=== PATIENT | female | born 1945 | race Caucasian/White ===

== ENCOUNTER 2024-11-15 07:23 | Day surgery (SDC) | payer MEDICARE, SELFPAY ==
--- OUTSIDE RECORDS SUMMARY | 2024-09-22 10:27 | XMS_ITS | Data Portability ---
Author Organization [place] [facility], Allergy Address [address] [facility] [address] [place] [address] Care Team Providers Care Manager Of Radiology Name Role Phone MARYANA GUNTER Primary Care Provider [phone] Assessment No assessment recorded. Plan of Treatment Reminders Order Date Submit Date Provider Last Modified By Organization Details Last Modified Time Details Appointments Establish ed 15 2024 10:30A M LIZY PERLA PA-C Not available Not available Not available Lab None recorded. Referral None recorded. Procedures None recorded. Surgeries None recorded. Imaging None recorded. Medication Orders None recorded. Patient TargetsNo targets recorded. Patient InstructionsNo instructions recorded. Reason for Referral None Reported. Problems Name Problem SNOMED Code Status Onset Date Resolution Date Notes Provider Name and Address Organization Details Recorded Time Benign paroxysmal positional vertigo 466534171 Active 2024 CONSTANTINE DUNCAN MD [address] [place] [address], [place], [address], [place] [facility] 5 09:56:39 Abnormal auditory perception 64852301 Active 2024 CONSTANTINE DUNCAN MD [address] [address], [place], [address], [place] [facility] 5 09:56:52 Abnormal auditory perception 64354407 Active 2024 CONSTANTINE DUNCAN MD [address] [place] [address], [place], [address], [place] [facility] 5 09:56:58 Referred otalgia of left ear 4097352285412 107 Active 2024 CONSTANTINE DUNCAN MD [address] [place] [address] [place], [address] - [facility] 5 09:57:49 Problem Notes None recorded. Medical Equipment None Reported. Allergies Allergen ID Allergen Name Allergen Category Reaction Reaction Severity Criticality Documentation Date Start Date Code Code System Note Provider Name and Address Organization Details Recorded Time 492577 Substance with sulfonami de structure and antibacte rial mechanism of action (substanc e) medicatio n Not available Not available Not available 07/06/2024 73311 8003 SNOMED Rachel rabago [place] - [facility] 5 09:11:32 205478 cow milk allergeni c extract food,medi cation Not available Not available Not available 07/06/2024 77960 5 RxNorm Rachel rabago [place] - [facility] 5 09:42:47 645674 POLLEN EXTRACTS environme nt,medica tion Not available Not available Not available 07/06/2024 62837 6 RxNorm Rachel rabago [place] [facility] 5 09:42:56 Medications Name Sig Start Date Stop Date Status Note LastModified by Organization Details LastModified Time amitriptyli ne 10 mg tablet TAKE 1 TABLET BY MOUTH EVERYDAY AT BEDTIME active Not Available Not Available No t Available meclizine 25 mg tablet TAKE 1 TABLET BY MOUTH 3 TIMES A DAY FOR 7 DAYS NEEDED FOR DIZZINESS 07/06 completed Not Available Not Available Not Available ergocalcife rol (vitamin D2) 1,250 mcg (50,000 unit) capsule TAKE 1 CAPSULE BY MOUTH EVERY WEEK active Not Available Not Available No t Available estradiol 0.01% (0.1 mg/gram) vaginal cream INSERT 1 GRAM VAGINALLY TWICE A WEEK AT BEDTIME active Not Available Not Available No t Available Vitals Date Recorded Body height Body weight Provider Name and Address Organization Details Last Updated DateTime 07/06/2024 160.02 cm 90968.78 g Rachel Castillo [facility] 07/06/2024 09:42:24 Social History None recorded. Functional Status None recorded. Mental Status None recorded. Family History Nothing Reported. Medical History Condition Response Depression Y Arthritis Y Anxiety Y Gynecological HistoryNo gynecological history recorded. Obstetrics History GPAL:G 0 P 0 0 0 0 Past Encounters Encounter ID Performer Location Encounter Start Date Encounter Closed Date Diagnosis/Indication Diagnosis SNOMED-CT Code Diagnosis ICD10 Code Diagnosis Note [id number] CONSTANTINE DUNCAN MD [facility] [address] [address] 07/06/2024 08:48:36 07/06/2024 10:09:43 Benign paroxysmal positional vertigo 484454488 H81.11 Patient with episodic positional ly induced vertigo. Irving-Hallpi ke was positive for vertigo and rotary nystagmus with the head to the left. We discussed that the patient s pattern of symptoms and physical exam findings are most consistent with benign paroxysmal positional vertigo (BPPV). The pathophysi ology of BPPV was discussed in detail. Patient was provided with a referral to [facility] for Zhou maneuvers and vestibular therapy. We discussed the fact that treatment of BPPV can require anywhere from 1 to 6 treatments for successful results, and has approximat erin 95% success rate in eliminatin g symptoms. BPPV can recur and if the classic positional ly induced symptoms do recur, patient can call for further referrals. Abnormal a uditory perception 27418390 H93.292 We discussed that the crackling sensation in the left ear is arising from her jaw joint as well. This can be addressed with her dentist if the above-ment ioned treatment is not successful . Referred o talgia of left ear [id number] 535303 H92.02 M26.622 M79.11 The patient complains of intermitte nt left-sided periauricu lar pressure sensation. Physical exam reveals no identifiab le source of these symptoms involving the auricle, external auditory canal, or tympanic membrane. Audiometri c testing and tympanomet ry are similarly unrevealin g. Furthermor e, examinatio n was positive for crepitus and tenderness of the left jaw joint and pamela-TMJ musculatur e. The patient's periauricu lar pressure sensation is most likely consistent with intermitte nt inflammati on of the jaw joint or spasm of the surroundin g musculatur e. I recommende d the patient use light massage, warm compresses and anti-infla mmatories for symptomati c management . Stressed chewing evenly on both sides of the mouth to keep from overworkin g the jaw joint. Use soft food diet as needed. Jaw Joint Program informatio n sheet was shared. If this treatment plan is ineffectiv e, recommend follow up with their dentist. Referral to physical therapist who specialize s in TMJ disorders was provided. Health Concerns Section Related Observation LastModified by Organization Detai ls LastModified Time None Recorded Concern Status LastModified by Organization Details LastModified Time None Recorded Advance Directives Directive None Recorded Payers Insurance Date Sequence Insurance Name Policy Number Policy Garcia Covered Member ID Garcia Member ID Guarantor Name 07/06/2024 1 [facility] MED[place] BLUE (MEDICARE REPLACEMENT PPO) [id number] [place] [id number] [address] [place] Notes Date Note Type Note Provider Name and Address Organization Details Recorded Time 07/06/2024 text/html Patient comes in today for 2 different problems. She has been noting for the last 6 to 8 months crackling sensation in her left ear, intermittently associated with pain. No discharge. No changes in hearing. She was seen at an ENT office in [place] (patient cannot remember who) where she had her ear cleaned. She reports she had audiometric testing which was almost normal . This was not available for my review today.Patient also has been having positional induced vertigo. This occurs typically when she is lays flat in bed and rolls over. The vertigo will last for about 30 seconds then subside. She reports having had physical therapy for this in the past somewhere in [place], but symptoms have never quite subsided. CONSTANTINE DUNCAN MD [address] [place] [address], [place], [address], [facility] - [facility] 07/06/2024 10:08:24 OBGyn Episode No OBEpisode recorded.
--- OUTSIDE RECORDS SUMMARY | 2024-09-22 10:27 | XMS_ITS | Patient Health Record ---
Author Organization [facility] Address [address] [place] [address] Care Team Providers Care It Service Technician Name Role Phone Gagandeep Hodges MD Primary Care Provider Unavail able Maico Calzada Unavailable [phone] Allergies Allergen (clinical drug ingredient) Drug/Non Drug Allergy documented on EMR Reaction Allergy Type Onset Date Status sulfamethoxazole / trimethoprim Bactrim flushing Drug Allergy Active cefaclor Cefaclor difficulty breathing Drug Allergy Active ciprofloxacin Cipro can't remember Drug Allergy Active Cortisone flushing, hot Drug Allergy Act you sulfa indigestion Drug Allergy Activ e Reason For Referral No Information Medications Medication SIG (Take, Route, Fr equency, Duration) Notes Start Date End Date Status Feldene 20 MG 1 capsule with food Orally Once a day; Duration: 30 day(s) 06/17/2011 Active Crestor 5 MG 2 tablets Orally Onc e a day; Duration: 30 day(s) Active Advil 200 MG 1 tablet as needed O rally every 6 hrs Active Estrace 0.1 MG/GM as directed Vaginal Active Problems Problem Type SNOMED Code ICD Code Onset Dates Problem Status W/U Status Risk Notes Problem Bursitis (83807551) Bursitis (727.3) Active confirmed Problem Myositis (85660902) Myositis (729.1) Active confirmed Problem Pain in limb (56042482) Pain in Limb (729.5) Active confirmed Problem Plantar fasciitis (737122171) Plantar Fasciitis (728.71) Active confirmed Problem Closed fracture of calcaneus (74306779) Stress Fx Calcaneus (825.0) Active confirmed Plan Of Treatment Pending Test Test Name Order Date X ray : Foot, left 2V 06/17/2011 [id number] TENDON SHEATH/LIGAMENT 0 08/21/2011 Insurance Providers Payer Name Payer Address Payer Phone Subscriber Number Group Number Insured Name Patient Relationship to Insured Coverage Start Date Coverage End Date [facility] [address] [facility] [place] [address] [id number] [place] Self - patient is the insured Medical (General) History Medical History History ICD Code fibromyalgia gall bladder problems sciatica chronic sinusitis Surgical History Surgery Date(Month/Year) cholecystectomy 2008
[2024-11-05 16:21] VITALS: BMI 28.3
--- NOTE | 2024-11-11 14:16 | HO.ANESPROP2 ---
Documented by User: Breanne Ruiz NP 11/11/24 14:17 HPI - Anesthesia Eval Consult details Narrative: 78yo F for Left Cataract Extraction IOL Insertion No previous cataract on record [facility] Past Medical History Medical History (Updated 11/05/24 @ 16:20 by Maryuri Negron, EDY) Vulvar atrophy Umbilical hernia Thyroid nodule Osteopenia Neoplasm of uncertain behavior of bladder Mixed incontinence Lymphedema IBS (irritable bowel syndrome) Hypercholesteremia Hematuria Fibromyalgia Endocervical polyp Depression Cystocele with prolapse Chronic jaw pain BPPV (benign paroxysmal positional vertigo) Aortic insufficiency Allergic rhinosinusitis Cataracts, bilateral Surgical History Surgical History (Updated 11/15/24 @ 08:11 by Grisel Sun RN) H/O dilation and curettage S/P Botox injection History of cholecystectomy Hx of colonoscopy (2016) Social History Social History Patient Tobacco Use Status: Never used Tobacco Advance Directives: No Advance Directives Information Provided: Yes Advance Directives on File: No Meds Allergies Allergy/AdvReac Type Severity Reaction Status Date / Time hydrocodone (From Vicodin) Allergy Mild Shortness Verified 11/15/24 08:10 of Breath Sulfa (Sulfonamide Allergy Mild hives Verified 11/15/24 08:12 Antibiotics) cefaclor Allergy Unknown Unknown Verified 11/05/24 16:15 atorvastatin, simvastatin AdvReac Mild myalgias Uncoded 11/15/24 08:10 Home Medications ?Medication ?Instructions ?Recorded ?Confirmed ?Last Taken ?Type amitriptyline 10 mg tablet 10 mg PO BEDTIME 11/05/24 11/05/24 Unknown History estradiol 0.01% (0.1 mg/gram) 1 g vaginal BEDTIME 11/05/24 11/05/24 Unknown History vaginal cream Exam Height,Weight and Vital Signs: Height 5 ft 2.99 in Weight 76.9 kg Assessment and Plan Assessment Anesthesia Assessment: Chart Reviewed Documented by User: Melissa Willis MD 11/15/24 08:24 [facility] Past Medical History Medical History (Updated 11/05/24 @ 16:20 by Maryuri Negron RN) Vulvar atrophy Umbilical hernia Thyroid nodule Osteopenia Neoplasm of uncertain behavior of bladder Mixed incontinence Lymphedema IBS (irritable bowel syndrome) Hypercholesteremia Hematuria Fibromyalgia Endocervical polyp Depression Cystocele with prolapse Chronic jaw pain BPPV (benign paroxysmal positional vertigo) Aortic insufficiency Allergic rhinosinusitis Cataracts, bilateral Family History Family history of problems with anesthesia: No Surgical History Surgical History (Updated 11/15/24 @ 08:11 by Grisel Sun RN) H/O dilation and curettage S/P Botox injection History of cholecystectomy Hx of colonoscopy (2017) History of Problems with Anesthesia: No Social History Social History Patient Tobacco Use Status: Never used Tobacco Advance Directives: No Advance Directives Information Provided: Yes Advance Directives on File: No Meds Allergies Allergy/AdvReac Type Severity Reaction Status Date / Time hydrocodone (From Vicodin) Allergy Mild Shortness Verified 11/15/24 08:10 of Breath Sulfa (Sulfonamide Allergy Mild hives Verified 11/15/24 08:12 Antibiotics) cefaclor Allergy Unknown Unknown Verified 11/05/24 16:15 atorvastatin, simvastatin AdvReac Mild myalgias Uncoded 11/15/24 08:10 Home Medications ?Medication ?Instructions ?Recorded ?Confirmed ?Last Taken ?Type amitriptyline 10 mg tablet 10 mg PO BEDTIME 11/05/24 11/05/24 Unknown History estradiol 0.01% (0.1 mg/gram) 1 g vaginal BEDTIME 11/05/24 11/05/24 Unknown History vaginal cream Exam Airway Mallampati Class: II TM Dist: >3cm Neck ROM: Full Heart: rrr Lungs: cta Assessment and Plan Assessment Anesthesia Assessment: Anesthesia Plan Discussed Final Anesthetic Review Family History of Problems with Anesthesia: No History of Problems with Anesthesia: No NPO: Yes ASA Class: II Final Preanesthetic Review: No Changes in Pt Med Stat, Meds/Allgs Chart Reviewed and Consent Obtained/Reviewed Patient Risk: Low Procedure Risk: Low Anesthetic Plan Anesthetic Plan: MAC: Disposition: Standard PACU
[2024-11-15 08:08] VITALS: BP 136/72; PULSE 79; RESP 16; TEMP 36.2; O2SAT 95
[2024-11-15] MEDS: Tetracaine HCl/PF 0.5% Oph Sol 4 ML DROPS 1 DROP EYE-LEFT (08:12)
[2024-11-15] MEDS: Cyclopentolate 1 % Ophth Sol 2 ML DRPBTL 1 DROP EYE-LEFT ×3 (08:13→08:18)
[2024-11-15] MEDS: Ketorolac Tromethamine 0.5% Op 5 ML DROPS 1 DROP EYE-LEFT ×3 (08:14→08:21)
[2024-11-15] MEDS: Tropicamide 1 % Ophth Sol 3 ML BTL 1 DROP EYE-LEFT ×3 (08:14→08:20)
[2024-11-15] MEDS: Phenylephrine HCL 2.5% Oph SoL 2 ML BOTTLE 1 DROP EYE-LEFT ×3 (08:15→08:22)
[2024-11-15] MEDS: Lactated Ringers 500 ML 50 ML IV (08:23)
--- NOTE | 2024-11-15 08:53 | MHC.SHP ---
Pre-Procedural Eval Section A - 24 Hr Update-Section A only Date of Service: 11/15/24 The patient is an INPATIENT: No Changes since office visit: No Cold of Flu in the past 2 weeks, No New Medical Problems, No Changes in Medication and No Patient answered all questions The patient has been examined within 24 hours of the surgical procedure. The History & Physical has been completed within 30 days and I have reviewed it.: Yes Section B - Complete if H&P > 30 days Chief Complaint: Age-related nuclear cataract, left eye Allergies: Allergies Allergy/AdvReac Type Severity Reaction Status Date / Time hydrocodone (From Vicodin) Allergy Mild Shortness Verified 11/15/24 08:10 of Breath Sulfa (Sulfonamide Allergy Mild hives Verified 11/15/24 08:12 Antibiotics) cefaclor Allergy Unknown Unknown Verified 11/05/24 16:15 atorvastatin, simvastatin AdvReac Mild myalgias Uncoded 11/15/24 08:10 Plan Diagnosis/Plan: Unchanged I have reviewed the history and physical and performed a pertinent physical examination on my patient. No changes have occurred unless specified. Time Spent With Patient Time: Total time managing care of this patient today ____ minutes.
--- NOTE | 2024-11-15 08:54 | HO.PNOPHT ---
Ophthalmology Procedure Procedure Date of Service: 11/15/24 Ophthalmology Viscoelastic: Healon Duet Dual Pack Pro Ophthalmology Lenses: IOL Acrysof MP - MA60AC (22.5) Procedure Notes: PREOPERATIVE DIAGNOSIS: Decreased visual acuity left eye secondary to cataract POSTOPERATIVE DIAGNOSIS: Same PROCEDURE: Left cataract extraction with intraocular lens insertion SURGEON: Mirza Riggs M.D. ANESTHESIA: Topical/MAC ESTIMATED BLOOD LOSS: None COMPLICATIONS: None After obtaining informed consent, the patient was brought to the operation room suite and placed in the supine position. After adequate sedation per anesthesia, topical drops of Tetracaine were given to the left eye. The eye was then prepped and draped in the usual sterile fashion. The operating room microscope was then positioned over the operative eye and a lid speculum placed. A paracentesis was created. Viscoelastic was then instilled into the anterior chamber. A three plane incision was then created temporally, utilizing a 2.85 mm keratome. Capsulotomy forceps were then utilized to create a circular tear capsulotomy. Hydrodissection and hydrodelineation were carried out until adequate mobilization of the nucleus occurred. Phacoemulsification was then utilized to remove the dense central nucleus followed by removal of the cortical material utilizing the automated aspiration irrigation unit. Viscoat elastic was instilled into the posterior capsular bag followed by placement of a posterior chamber intraocular lens into the sulcus without difficulty. I was questioning the interety of the capule, although no vitreous was encountered. The residual Viscoat elastic was then removed utilizing the automated IA machine. The wound was check and found to be watertight. The patient tolerated the procedure well and the lid speculum was removed. Intracameral injection of Vigamox 0.1 mL followed by a subtenon injection of Kenalog-40 0.2 mL were administered. The patient will be seen in the a.m.
[2024-11-15 09:27] VITALS: BP 117/60; PULSE 81; RESP 18; TEMP 36.8; O2SAT 100
== END 2024-11-15 09:32 | disposition home or self-care (01) ==
PROVIDERS: PCP Internal Medicine; Visit Provider Ophthalmology
PROC: (CPT 66985; principal; 2024-11-15 09:30)
DX: H25.12 Age-related nuclear cataract, left eye (principal); H52.4 Presbyopia; H11.153 Pinguecula, bilateral; H18.413 Arcus senilis, bilateral; E78.00 Pure hypercholesterolemia, unspecified; M79.7 Fibromyalgia; R42 Dizziness and giddiness; Z79.899 Other long term (current) drug therapy; Z88.2 Allergy status to sulfonamides
CPT/HCPCS: 66984; J2250; J3301; V2630

== ENCOUNTER 2024-11-29 08:19 | Day surgery (SDC) | payer MEDICARE, SELFPAY ==
--- OUTSIDE RECORDS SUMMARY | 2020-04-30 19:00 | XMS_ITS | Continuity of Care Document ---
Author Organization Antony Machuca A Address [address] [place] [phone] Phone Care Team Providers Care Asbestos Shingle Roofer Name Role Phone Neil Winter MD Unavailable Unavailable Allergies, Adverse Reactions, Alerts Substance Reaction Status Criticality PSEUDOEPHEDRINE HCL Active No Infor mation Medications Medication Instructions Dosage Effective Dates (start - stop) Status Comments duloxetine 20 mg capsule,delayed release 1 tablet once a day for 30 days - Active cholecalciferol (vitamin D3) 125 mcg (5,000 unit) capsule 1 capsule once a day for 6 months - Active Advance Directives Directive Yes / No Effective Date File Name No Information Encounters Encounter Description Practice Location Reason(s) For Visit Diagnoses Date Provider Providers Copied on Encounter Antony MARROQUIN, [address] [place] [address], [id number], tel:[phone] Main Office No Information Moy Trejo. [facility] [address], [id number], [place]. tel:[phone] Antony MARROQUIN, [address] [place] [address], [id number], [place] tel:[phone] Main Office Pain in unspecified jointDorsalgi a, unspecified Grigoaminata Davis . [address], [place], [address], [place]. tel:[phone] Antony MARROQUIN, [address] [place] [address], [id number], tel:[phone] Main Office No Information Moy Trejo. [address] [place] [address], [id number], . tel:[phone] Antony MARROQUIN, [address] [place] [address], [id number], tel:[phone] Main Office Pain in unspecified jointDorsalgi a, unspecified Grlima Davis . [address], [address], [place], [address], [place]. tel:[phone] Antony MARROQUIN, [address] [place] [address], [id number], tel:[phone] Main Office No Information Moy Trejo. [address] [place] [address], [id number], . tel:[phone] Family History Family Member Type Diagnosis Age At Onset No Information Payers Payer name Insurance type Covered republican ID Authoriza tion(s) No Information Social History Type Description Quantity Date Captured Comments Sex Female Smoking Status No Information Chief Complaint And Reason For Visit No Information Reason For Referral Reason For Referral No Information History Of Present Illness Encounter Date Complaint History Of Prese nt Illness No Information Functional Status Date Functional Assessmen t No Information Instructions Date Instruction Additional Infor mation No Information Assessments Type Assessment Date No Information Patient Care Teams Name Effective Dates (start - stop) Status Members No Information
--- OUTSIDE RECORDS SUMMARY | 2024-10-04 09:43 | XMS_ITS | Data Portability ---
Author Organization [place] [facility], Allergy Address [address] [facility] [address] [place] [address] Care Team Providers Care Business Division Chair Name Role Phone MARYANA GUNTER Primary Care Provider [phone] Assessment No assessment recorded. Plan of Treatment [...] Details Recorded Time Benign paroxysmal positional vertigo 890882352 Active 2024 CONSTANTINE DUNCAN MD [address] [place] [address], [place], [address], [place] [facility] 5 09:56:39 Abnormal auditory perception 05325517 Active 2024 CONSTANTINE DUNCAN MD [address] [address], [place], [address], [place] [facility] 5 09:56:52 Abnormal auditory perception 47180252 Active 2024 CONSTANTINE DUNCAN MD [address] [place] [address], [place], [address], [place] [facility] 5 09:56:58 Referred otalgia of left ear 4949101026358 107 Active 2024 CONSTANTINE DUNCAN MD [address] [place] [address] [place], [address] - [facility] 5 09:57:49 Problem Notes None recorded. Medical Equipment None Reported. Allergies Allergen ID Allergen Name Allergen Category Reaction Reaction Severity Criticality Documentation Date Start Date Code Code System Note Provider Name and Address Organization Details Recorded Time 000475 Substance with sulfonami de structure and antibacte rial mechanism of action (substanc e) medicatio n Not available Not available Not available 07/06/2024 78335 8003 SNOMED Rachel rabago [place] - [facility] 5 09:11:32 930873 cow milk allergeni c extract food,medi cation Not available Not available Not available 07/06/2024 35151 5 RxNorm Rachel rabago [place] - [facility] 5 09:42:47 855376 POLL[employer] EXTRACT[employer] environme nt,medica tion Not available Not available Not available 07/06/2024 39358 6 RxNorm Rachel rabago [place] - [facility] 5 09:42:56 Medications Name Sig Start [...] Details Last Updated DateTime 07/06/2024 160.02 cm 76292.78 g Rachel Castillo [place] - [facility] 07/06/2024 09:42:24 Social History None recorded. Functional Status None recorded. Mental Status None recorded. Family History Nothing Reported. Medical History Condition Response Arthritis Y Anxiety Y Depression Y Gynecological HistoryNo gynecological history recorded. Obstetrics History GPAL:G 0 P 0 0 0 0 Past Encounters Encounter ID Performer Location Encounter Start Date Encounter Closed Date Diagnosis/Indication Diagnosis SNOMED-CT Code Diagnosis ICD10 Code Diagnosis Note [id number] CONSTANTINE DUNCAN MD [facility] [address] [address] 07/06/2024 08:48:36 07/06/2024 10:09:43 Benign paroxysmal positional vertigo [id number] H81.11 Patient with episodic positional ly induced vertigo. [place]-Hallpi ke was positive for vertigo and rotary nystagmus with the head to the left. We discussed that the patient s pattern of symptoms and physical exam findings are most consistent with benign paroxysmal positional vertigo (BPPV). The pathophysi ology of BPPV was discussed in detail. Patient was provided with a referral to [facility] for Zhou maneuvers and vestibular therapy. We discussed the fact that treatment of BPPV can require anywhere from 1 to 6 treatments for successful results, and has approximat erin 95% success rate in eliminatin g symptoms. BPPV can recur and if the classic positional ly induced symptoms do recur, patient can call for further referrals. Abnormal a uditory perception 90102605 H93.292 We discussed that the crackling sensation in the left ear is arising from her jaw joint as well. This can be addressed with her dentist if the above-ment ioned treatment is not successful . Referred o talgia of left ear [id number] 847662 H92.02 M26.622 M79.11 The patient complains of [...] Garcia Member ID Guarantor Name 07/06/2024 1 [employer]MEDICARE [place]PLACEMENT PPO) [id number] [place] [id number] [address] [place] OBGyn Episode No OBEpisode recorded.
--- OUTSIDE RECORDS SUMMARY | 2024-10-04 09:43 | XMS_ITS ---
Author [facility] Organization Unknown Care Team Organization Name Specialty Phone Email Start Date End [facility] 01/08/2024
--- OUTSIDE RECORDS SUMMARY | 2024-10-04 09:43 | XMS_ITS | Patient Health Record ---
Author Organization [facility] Address [address] [place] [address] Care Team Providers Care Senior Research Analyst Name Role Phone Gagandeep Hodges MD Primary Care Provider Unavail able Maico Calzada Unavailable [phone] Allergies Allergen (clinical drug ingredient) Drug/Non Drug [...] Status W/U Status Risk Notes Problem Bursitis (84590568) Bursitis (727.3) Active confirmed Problem Myositis (20577776) Myositis (729.1) Active confirmed Problem Pain in limb (00801650) Pain in Limb (729.5) Active confirmed Problem Plantar fasciitis (556020911) Plantar Fasciitis (728.71) Active confirmed Problem Closed fracture of calcaneus (83367613) Stress Fx Calcaneus (825.0) Active confirmed Plan Of Treatment Pending Test Test Name Order Date X ray : Foot, left 2V 06/17/2011 [id number] TENDON SHEATH/LIGAMENT 0 08/21/2011 Insurance Providers Payer Name Payer Address Payer Phone Subscriber Number Group Number Insured Name Patient Relationship to Insured Coverage Start Date Coverage End Date [facility] [address] [facility] [place] [address] [id number] [place] Self - patient is the insured Medical (General) History Medical History History ICD Code fibromyalgia gall bladder problems sciatica chronic sinusitis Surgical History Surgery Date(Month/Year) cholecystectomy 2008
--- OUTSIDE RECORDS SUMMARY | 2024-10-04 09:44 | XMS_ITS | Clinical Summary ---
Author Organization [facility] Address [address] [address] Phone Care Team Providers Care Poker Room Manager Name Role Phone Miley Romo MD Primary Care Provider Allergies Active Allergy Reactions Criticality Noted Date Comments Hydrocodone-Acetaminophen 06/24/2024 Pfcpsbr-Gwt-Yaj Reductase Inhibitors GI Upset 06/24/2024 Sulfa (Sulfonamide Antibiotics) 06/08 Medications amitriptyline (ELAVIL) 10 MG tablet take 1 tablet by mouth everyday at bedtime Active estradioL (ESTRACE) 0.01 % (0.1 mg/gram) vaginal cream INSERT 1 GRAM VAGINALLY TWICE A WEEK AT BEDTIME Active Hospital, Clinic, or Other Facility Administered Medication Ordered Dose Route Frequency Start Date End Date Status triamcinolone acetonide (KENALOG-40) 40 mg/mL injection 40 mgIndications:Right knee pain 40 mg IM Once 06/24/2024 09/22/2024 Ended BUPivacaine HCl (MARCAINE) 0.5% injection 3 mLIndications:Right knee pain 3 mL Infil Once 06/24/2024 09/22/2024 Ended lidocaine (XYLOCAINE) 1% injection 3 mLIndications:Right knee pain 3 mL Infil Once 06/24/2024 09/22/2024 Ended Social History Tobacco Use Types Packs/Day Years Used Date Smoking Tobacco: Never Smokeless Tobacco: Never Tobacco Cessation:Counseling Given: Not Answered Alcohol Use Standard Drinks/Week Comments Yes 0 (1 standard drink = 0.6 oz pur e alcohol) Education Answer Date Recorded Are you interested in more education? Not on shireen e 05/31/2024 Are you concerned about learning? Not on file 05/31/2024 No 05/31/2024 No 05/31/2024 Digital Access Answer Date Recorded No 05/31/2024 No 05/31/2024 Reliable internet access at home? Not on file 05/31/2024 Device with a working camera? Not on file Comments Unknown Sex and Gender Information Value Date Recorded Sex Assigned at Female 05/31/2024 12:42 PM EDT Legal Sex Female 12:09 PM EDT Gender Identity Female 05/31/2024 12:42 PM EDT Sexual Orientation Straight 05/31/2024 12 :42 PM EDT Plan of Treatment Health Maintenance Due Date Last Done Comments Adult Td,Tdap Booster 1945 LIPID PANEL 1945 DEPRESSION SCREENING 1957 HEPATITIS C SCREENING 12/20/1963 PNEUMOCOCCAL VACCINES (50+ y ears) (1 of 1 - PCV) 12/20/1995 ZOSTER VACCINES (1 of 2) 12/20/1995 OSTEOPOROSIS SCREENING INITI AL (ONE-TIME) 2010 RSV VACCINE (1 - 1-dose 75+ series) 2020 COVID-19 VACCINE ( - 2023-2 5 season) 2023 SMOKING STATUS SCREENING (On ce After 26 Yrs) Completed 06/24/2024 HEPATITIS A VACCINES Aged Out No long er eligible based on patient's age to complete this topic HIB VACCINES Aged Out No longer eligi ble based on patient's age to complete this topic MENINGOCOCCAL VACCINES (ACWY) Aged Out No longer eligible based on patient's age to complete this topic MENINGOCOCCAL VACCINES (B) Aged Out N o longer eligible based on patient's age to complete this topic Medical Devices Not on file Insurance [employer] [place]UE REPLACEMENT [facility] MEDICARE PPO BLUE REPLACEMENT [facility] MEDICARE PPO BLUE REPLACEMENT [facility] MEDICARE PPO BLUE REPLACEMENT [facility] MEDICARE PPO BLUE REPLACEMENT [facility] MEDICARE PPO BLUE REPLACEMENT Care Teams Poker Room Manager Relationship Specialty Start Date End Date Miley Romo MD [address] [place] [phone] PCP - General Internal Medicine 05/31/24 Additional Source Comments The information contained in this document represents components of the legal health record. It is not the complete legal health record.[facility]
[2024-11-05 16:23] VITALS: BMI 28.3
--- NOTE | 2024-11-25 09:43 | HO.ANESPROP2 ---
Documented by User: Breanne Ruiz NP 11/25/24 09:44 HPI - Anesthesia Eval Consult details Narrative: 78yo F for Right Cataract Extraction IOL Insertion Left eye 11/15/24: [facility] 3 [facility] Past Medical History Medical History Vulvar atrophy Umbilical hernia Thyroid nodule Osteopenia Neoplasm of uncertain behavior of bladder Mixed incontinence Lymphedema IBS (irritable bowel syndrome) Hypercholesteremia Hematuria Fibromyalgia Endocervical polyp Depression Cystocele with prolapse Chronic jaw pain BPPV (benign paroxysmal positional vertigo) Aortic insufficiency Allergic rhinosinusitis Cataracts, bilateral Family History Family history of problems with anesthesia: No Surgical History Surgical History Hx of left cataract extraction (11/15/24) H/O dilation and curettage S/P Botox injection History of cholecystectomy Hx of colonoscopy (2016) History of Problems with Anesthesia: No Social History Social History Are you a primary disabilities caregiver to a significant other at home: No Do you presently have visiting nurse or other home services: No Patient Tobacco Use Status: Never used Tobacco Second Hand Smoke Exposure: No Use of substances other than those prescribed or required for medical reasons: No Have you been hit, kicked, punched, or otherwise hurt by someone within the past year? If so, by whom?: No Are you DNR?: No Advance Directives: No Advance Directives Information Provided: Yes Advance Directives on File: No Patient : No : No Poor oral hygiene: No Meds Allergies Allergy/AdvReac Type Severity Reaction Status Date / Time hydrocodone (From Vicodin) Allergy Mild Shortness Verified 11/15/24 08:10 of Breath Sulfa (Sulfonamide Allergy Mild hives Verified 11/15/24 08:12 Antibiotics) cefaclor Allergy Unknown Unknown Verified 11/05/24 16:15 atorvastatin, simvastatin AdvReac Mild myalgias Uncoded 11/15/24 08:10 Home Medications ?Medication ?Instructions ?Recorded ?Confirmed ?Last Taken ?Type amitriptyline 10 mg tablet 10 mg PO BEDTIME 11/05/24 11/17/24 Unknown History estradiol 0.01% (0.1 mg/gram) 1 g vaginal BEDTIME 11/05/24 11/17/24 Unknown History vaginal cream Exam Height,Weight and Vital Signs: Height 5 ft 2.99 in Weight 72.5 kg Assessment and Plan Assessment Anesthesia Assessment: Chart Reviewed Final Anesthetic Review Family History of Problems with Anesthesia: No History of Problems with Anesthesia: No Documented by User: Lou Reeder MD 11/29/24 10:33 [facility] Past Medical History Medical History Vulvar atrophy Umbilical hernia Thyroid nodule Osteopenia Neoplasm of uncertain behavior of bladder Mixed incontinence Lymphedema IBS (irritable bowel syndrome) Hypercholesteremia Hematuria Fibromyalgia Endocervical polyp Depression Cystocele with prolapse Chronic jaw pain BPPV (benign paroxysmal positional vertigo) Aortic insufficiency Allergic rhinosinusitis Cataracts, bilateral Surgical History Surgical History Hx of left cataract extraction (11/15/24) H/O dilation and curettage S/P Botox injection History of cholecystectomy Hx of colonoscopy (2016) Social History Social History Are you a primary disabilities caregiver to a significant other at home: No Do you presently have visiting nurse or other home services: No Patient Tobacco Use Status: Never used Tobacco Second Hand Smoke Exposure: No Use of substances other than those prescribed or required for medical reasons: No Have you been hit, kicked, punched, or otherwise hurt by someone within the past year? If so, by whom?: No Are you DNR?: No Advance Directives: No Advance Directives Information Provided: Yes Advance Directives on File: No Patient : No : No Poor oral hygiene: No Meds Allergies Allergy/AdvReac Type Severity Reaction Status Date / Time hydrocodone (From Vicodin) Allergy Mild Shortness Verified 11/15/24 08:10 of Breath Sulfa (Sulfonamide Allergy Mild hives Verified 11/15/24 08:12 Antibiotics) cefaclor Allergy Unknown Unknown Verified 11/05/24 16:15 atorvastatin, simvastatin AdvReac Mild myalgias Uncoded 11/15/24 08:10 Home Medications ?Medication ?Instructions ?Recorded ?Confirmed ?Last Taken ?Type amitriptyline 10 mg tablet 10 mg PO BEDTIME 11/05/24 11/17/24 Unknown History estradiol 0.01% (0.1 mg/gram) 1 g vaginal BEDTIME 11/05/24 11/17/24 Unknown History vaginal cream Exam Airway Mallampati Class: II TM Dist: >3cm Neck ROM: Full Loose/Missing/Broken Teeth: No Heart: RRR Lungs: CTA Assessment and Plan Assessment Anesthesia Assessment: Anesthesia Plan Discussed Final Anesthetic Review NPO: Yes ASA Class: III Final Preanesthetic Review: Meds/Allgs Chart Reviewed, Consent Obtained/Reviewed and Anes Risks/Benef Reviewed Patient Risk: Intermediate Procedure Risk: Low Anesthetic Plan Anesthetic Plan: MAC: Disposition: Standard PACU
[2024-11-29 09:28] VITALS: BP 127/67; PULSE 80; RESP 16; TEMP 36.7; O2SAT 96
[2024-11-29] MEDS: Lactated Ringers 500 ML 50 ML IV (09:32)
[2024-11-29] MEDS: Cyclopentolate 1 % Ophth Sol 2 ML DRPBTL 1 DROP EYE-RIGHT ×3 (09:33→09:48)
[2024-11-29] MEDS: Phenylephrine HCL 2.5% Oph SoL 2 ML BOTTLE 1 DROP EYE-RIGHT ×3 (09:33→09:48)
[2024-11-29] MEDS: Tropicamide 1 % Ophth Sol 3 ML BTL 1 DROP EYE-RIGHT ×3 (09:33→09:48)
[2024-11-29] MEDS: Tetracaine HCl/PF 0.5% Oph Sol 4 ML DROPS 1 DROP EYE-RIGHT (09:33)
[2024-11-29] MEDS: Ketorolac Tromethamine 0.5% Op 5 ML DROPS 1 DROP EYE-RIGHT ×3 (09:33→09:48)
--- NOTE | 2024-11-29 10:29 | MHC.SHP ---
Pre-Procedural Eval Section A - 24 Hr Update-Section A only Date of Service: 11/29/24 The patient is an INPATIENT: No Changes since office visit: No Cold of Flu in the past 2 weeks, No New Medical Problems, No Changes in Medication and No Patient answered all questions The patient has been examined within 24 hours of the surgical procedure. The History & Physical has been completed within 30 days and I have reviewed it.: Yes Section B - Complete if H&P > 30 days Chief Complaint: Age-related nuclear cataract, right eye Allergies: Allergies Allergy/AdvReac Type Severity Reaction Status Date / Time hydrocodone (From Vicodin) Allergy Mild Shortness Verified 11/15/24 08:10 of Breath Sulfa (Sulfonamide Allergy Mild hives Verified 11/15/24 08:12 Antibiotics) cefaclor Allergy Unknown Unknown Verified 11/05/24 16:15 atorvastatin, simvastatin AdvReac Mild myalgias Uncoded 11/15/24 08:10 Plan Diagnosis/Plan: Unchanged I have reviewed the history and physical and performed a pertinent physical examination on my patient. No changes have occurred unless specified. Time Spent With Patient Time: Total time managing care of this patient today ____ minutes.
[2024-11-29 10:50] VITALS: BP 119/69; PULSE 70; RESP 18; TEMP 36.6; O2SAT 99
--- NOTE | 2024-11-29 10:50 | P.PCNO_ITS ---
Ophthalmology Procedure Procedure Date of Service: 11/29/24 Ophthalmology Viscoelastic: Healon Duet Dual Pack Pro Ophthalmology Lenses: IOL Acrysof MP - MA60AC (22.5) Procedure Notes: PREOPERATIVE DIAGNOSIS: Decreased visual acuity right eye secondary to cataract POSTOPERATIVE DIAGNOSIS: Same PROCEDURE: Right cataract extraction with intraocular lens insertion SURGEON: Mirza Riggs M.D. ANESTHESIA: Topical/MAC ESTIMATED BLOOD LOSS: None COMPLICATIONS: None After obtaining informed consent, the patient was brought to the operating room suite and placed in the supine position. After adequate sedation per anesthesia, topical drops of Tetracaine were given to the right eye. The eye was then prepped and draped in the usual sterile fashion. The operating room microscope was then positioned over the operative eye and a lid speculum placed. A paracentesis was created. Viscoelastic was then instilled into the anterior chamber. A three plane incision was then created temporally, utilizing a 2.85 mm keratome. Capsulotomy forceps were then utilized to create a circular tear capsulotomy. Hydrodissection and hydrodelineation were carried out until adequate mobilization of the nucleus occurred. Phacoemulsification was then utilized to remove the dense central nu cleus followed by removal of the cortical material utilizing the automated aspiration irrigation unit. Viscoelastic was instilled into the posterior capsular bag followed by placement of a posterior chamber intraocular lens without difficulty. The residual Viscoelastic was then removed utilizing the automated IA machine. The wound was checked and found to be watertight. The patient tolerated the procedure well and the lid speculum was removed. Intracameral injection of Vigamox 0.1 mL followed by a subtenon injection of Kenalog-40 0.2 mL were administered. The patient will be seen in the a.m.
== END 2024-11-29 11:07 | disposition home or self-care (01) ==
PROVIDERS: PCP Internal Medicine; Visit Provider Ophthalmology
PROC: (CPT 66985; principal; 2024-11-29 10:30)
DX: H54.7 Unspecified visual loss (principal); H25.12 Age-related nuclear cataract, left eye; H52.4 Presbyopia; H11.153 Pinguecula, bilateral; H18.413 Arcus senilis, bilateral; E78.00 Pure hypercholesterolemia, unspecified; M79.7 Fibromyalgia; H81.10 Benign paroxysmal vertigo, unspecified ear; F32.A Depression, unspecified; Z79.899 Other long term (current) drug therapy; Z88.2 Allergy status to sulfonamides
CPT/HCPCS: 66984; J2250; J3301; V2630